=== PATIENT | female | born 1990 | race Caucasian/White ===

== ENCOUNTER 2017-06-09 21:56 | Inpatient (IN) | payer OTHER ==
[~2017-06-09] VITALS: Ht 162.6 cm; Wt 59.0 kg
--- NOTE | ~2017-06-09 | PN ---
Unit #: [id number] #: [id number] Patient: JOSE MENCHACA [id number] [facility] [address] [place] [address] [id number] I MR#: [id number] NAME: JOSE MENCHACA ROOM: [facility] Age: 26 Sex: F Admission Date: 06/10/2017 : 1990 Attending Physician: Flip Gonzalez M.D. Admitting Physician: Flip Gonzalez M.D. Primary Care Physician: Primary Care Physician Mandy MCGILL NOTES DATE OF SERVICE: 06/12/2017 DISCUSSION Ms. Jose Menchaca is a 26-year-old female, seen on 06/12/2017. The patient interviewed, chart reviewed, and obtained information from nursing staff. The patient continues to be isolative, flat affect, sad and dysphoric mood. Vital signs; temperature 98.5, heart rate 61, and blood pressure 90/56. The patient's mood was irritable, withdrawn, and isolative. REVIEW OF SYSTEMS Complete review of systems unremarkable. MENTAL STATUS EXAMINATION General appearance, the patient dressed casually. Attention span and concentration, fair. Oriented in time, place, and person. Mood and affect, labile. Speech, monotone. Thought process, concrete. The patient denied any thoughts of harming self or others, but passive SI. Recent and remote memory, poor. Insight and judgment, poor. DIAGNOSES Opioid use disorder, severe and major depressive disorder, recurrent. ASSESSMENT/PLAN Advised to continue with current medication and therapeutic protocol. If needed, consider further adjustment of medication. Dictated by... Carito Correa/brenda TD: 06/14/2017 19:40 JOB #: [id number] Unit #: [id number] #: [id number] Patient: JOSE MENCHACA PROGRESS NOTES Page 1 of 1 X Flip Gonzalez MD PROGRESS NOTE
--- NOTE | ~2017-06-09 | PA ---
Unit #: [id number] #: [id number] Patient: MICHELE MENCHACA [id number] [facility] [address] [place] [address] [id number] I MR#: [id number] NAME: MICHELE MENCHACA ROOM: [facility] Age: 26 Sex: F Admission Date: 06/10/2017 : 1990 Date of Assessment: 06/10/2017 Attending Physician: Flip Gonzalez M.D. Admitting Physician: Flip Gonzalez M.D. Primary Care Physician: Primary Care Physician No PSYCHIATRIC ASSESSMENT INFORMANT The patient reliability, fair; chart reliability, good. CHIEF COMPLAINT Opiate detox and depression. HISTORY OF PRESENT ILLNESS Ms. Garcia is a 26-year-old female, presented with the above-mentioned complaint. The patient reported that wanted opioid detox, reported making suicidal statement, feeling sad, depressed, anxious and reported rather kill herself, than return to drugs or homeless. The patient reported lack of social support, family support. No recovery support. The patient reports that she is using about a gram of heroin IV. Reported using meth, Xanax, wherever available. The patient unable to wander for safety, needing inpatient admission at this time for psychiatric stabilization. The patient reported tobacco use, half a pack daily; alcohol occasionally; marijuana; recent use of crack cocaine; recent use opiate 1 g daily; amphetamine as she can get amphetamine, Xanax. Longest period of sobriety 6 months. PAST PSYCHIATRIC HISTORY Remarkable for history of previous treatment rehab in 2014. FAMILY HISTORY AND SOCIAL HISTORY The patient is currently homeless with poor support system. No legal problems. MEDICAL HISTORY Remarkable for history of hepatitis C. Musculoskeletal; muscle strength and tone, no atrophy or abnormal movement. Gait normal. MEDICATION HISTORY None. ALLERGIES No known drug allergies. SUBSTANCE ABUSE HISTORY Please see above. REVIEW OF SYSTEMS HEENT: Eyes, clear. Ears, nose, mouth, and throat; clear. CARDIOVASCULAR: Unremarkable. Unit #: [id number] #: [id number] Patient: MICHELE MENCHACA RESPIRATORY: Unremarkable. GI: Unremarkable. : Unremarkable. SKIN: Unremarkable. LYMPH NODE: Unremarkable. NEUROLOGIC: Unremarkable. ENDOCRINE: Unremarkable. HEMATOLOGIC: Unremarkable. ALLERGIC/IMMUNOLOGIC: Unremarkable. MUSCULOSKELETAL: Muscle strength and tone, no atrophy or abnormal movement. Gait normal. MENTAL STATUS EXAMINATION CONSTITUTIONAL: Measurement of vital signs; temperature 98.6, pulse 68, respirations 18, and blood pressure 122/76, height 5 feet 4 inches, weight 130 pounds. GENERAL APPEARANCE: The patient dressed casually. The patient did not show any facial deformity. MUSCULOSKELETAL: Please see above. PSYCHIATRIC EXAMINATION Description of speech; regular rate, normal volume, normal articulation, coherent, and spontaneous, disorganize. Thought process, goal directed. Description of association, intact. Description of abnormal psychotic thinking; the patient denied any hallucination or delusions, but mood lability, suicidal ideation, substance abuse. Description of the patient's judgment, concerning everyday activity, poor. Social situation, poor. Concerning psychiatric condition, poor. Complete mental status examination; oriented in time, place, and person. Recent and remote memory, fair. Attention span and concentration, fair. Language, able to name object and repeat phrases. Fund of knowledge, aware of current event and passive vocabulary intact. Mood and affect, sad and dysphoric. Insight and judgment, fair to poor. ASSETS AND LIABILITIES Assets; the patient is articulate, able to take care of her ADL. Liability; history of substance abuse and depression. ADMITTING DIAGNOSES Psychiatric: Opioid use disorder, severe, F11.20; major depressive disorder, recurrent, severe, F33.2. Secondary diagnosis: Deferred. Medical diagnosis: Hepatitis C. Stressors: Psychosocial stressors. PSYCHIATRIC PLAN AND TREATMENT GOAL AND DISCHARGE PLAN 1. Advised to admit the patient on the inpatient unit. Provide safe, supportive, and structured environment. 2. Ordered labs; CBC, CMP, UA, UDS, test. 3. Detox protocol and detox monitoring. If needed, consider medication for depression. 4. The patient to attend group therapy, individual therapy, chemical dependency group. 5. Treatment goal; to attain euthymic mood, gain insight into her Unit #: [id number] #: [id number] Patient: MICHELE MENCHACA problem, and learn coping skills. 6. Discharge plan; plan to stabilize the patient and consider followup in outpatient program. ESTIMATED LENGTH OF STAY 5 days. Dictated by... Flip Gonzalez M.D. JADE/brenda TD: 06/11/2017 15:43 JOB #: [id number] PSYCHIATRIC ASSESSMENT Page 1 of 1 X Flip Gonzalez MD PSYCHIATRIC ASSESSMENT
--- NOTE | ~2017-06-09 | CO ---
Unit #: [id number] #: [id number] Patient: MICHELE MENCHACA [id number] [facility] [address] [place] [address] [id number] I MR#: [id number] NAME: MICHELE MENCHACA ROOM: [facility] Age: 26 Sex: F Admission Date: 06/10/2017 : 1990 Attending Physician: Flip Gonzalez M.D. Primary Care Physician: Primary Care Physician No Consultation Date: 06/13/2017 CONSULTATION REPORT ORDERING PROVIDER Flip Gonzalez M.D. REASON FOR CONSULTATION Vaginal odor. SUBJECTIVE The patient reports that she had a recent diagnosis of bacterial vaginosis and was prescribed Flagyl before being admitted to [facility]. She did not complete this course and reports that she only took about 4 days worth. She complains foul smelling discharge with itching, but no burning. She also has a history of vaginal herpes, which she is having a flare of now. OBJECTIVE Vaginal examination was deferred. Her vital signs are stable. DIAGNOSTIC STUDIES LABORATORY RESULTS: No urinalysis was done. ASSESSMENT 1. Bacterial vaginosis. 2. Herpes. PLAN Plan is to start the patient on a new treatment cycle of Flagyl and Valtrex. Dictated by... Chrissy Arias/brenda TD: 06/14/2017 16:41 JOB #: [id number] Unit #: [id number] #: [id number] Patient: MICHELE MENCHACA CONSULTATION REPORT Page 1 of 1 X ELICIA VENEGAS APRN X CONSULTATION REPORT
--- NOTE | ~2017-06-09 | DS ---
Unit #: [id number] #: [id number] Patient: MICHELE MENCHACA [id number] [facility] [address] [place] [address] [id number] MR#: [id number] NAME: MICHELE MENCHACA ROOM: [facility] Age: 26 Sex: F Admission Date: 06/10/2017 : 1990 Discharge Date: 06/14/2017 Attending Physician: Flip Gonzalez M.D. Primary Care Physician: Primary Care Physician No DISCHARGE SUMMARY REASON FOR ADMISSION Opiate detox. DIAGNOSTIC STUDIES LABORATORY DATA: Unremarkable. HOSPITAL COURSE The patient was admitted to inpatient unit on 06/10/17 and discharged on 06/14/17. Patient was treated with psychotherapy, psychoeducation, detox protocol, detox monitoring. Patient was responsive to treatment, showed improvement. Subsequently, patient was discharged with a plan to follow up in outpatient program. DISCHARGE DIAGNOSES PSYCHIATRIC: 1. Opiate use disorder, severe, F11.20. 2. Major depressive disorder, recurrent, severe, F33.2. SECONDARY DIAGNOSIS: Deferred. MEDICAL DIAGNOSIS: Hepatitis C. STRESSORS: Psychosocial stressor. FOLLOWUP CARE Patient to follow up in outpatient clinic as per social insurance adviser. DISCHARGE MEDICATIONS 1. Celexa 20 mg daily for depression. 2. Trazodone 100 mg at bedtime for sleep. CONDITION AT DISCHARGE Patient pleasant, cooperative. Denied any psychotic symptoms or any suicidal ideation. PROGNOSIS Guarded. DIET AND ACTIVITY As tolerated. Unit #: [id number] #: [id number] Patient: MICHELE MENCHACA Dictated by... Flip Gonzalez M.D. SZJose/jessica TD: 06/17/2017 17:22 JOB #: [id number] DISCHARGE SUMMARY Page 1 of 1 X Flip Gonzalez MD X DISCHARGE SUMMARY
--- NOTE | ~2017-06-09 | HP ---
Unit #: [id number] #: [id number] Patient: JOSE MENCHACA [id number] [facility] [address] [place] [address] [id number] I MR#: [id number] NAME: JOSE MENCHACA ROOM: [facility] Age: 26 Sex: F Admission Date: 06/10/2017 : 1990 Attending Physician: Flip Gonzalez M.D. Admitting Physician: Flip Gonzalez M.D. Primary Care Physician: Primary Care Physician No HISTORY AND PHYSICAL HISTORY OF PRESENT ILLNESS Jose is a 26-year-old female admitted to [facility] because of her IV drug use. She shoots heroin. PAST MEDICAL HISTORY 1. Long history of opioid abuse to include IV heroin. 2. Hepatitis C. PAST SURGICAL HISTORY Nothing reported. ALLERGIES Penicillin, Zofran. SOCIAL HISTORY Smokes 1/2 pack per day. Drinks alcohol socially and admits to a long history of illicit substance abuse to include IV heroin. FAMILY HISTORY Medically noncontributory. REVIEW OF SYSTEMS CONSTITUTIONAL: No fever or chills. HEENT: Denies any sore throat, ear pain or runny nose. CARDIOVASCULAR: Denies chest pain, irregular heart rhythm or palpitations. CHEST: Denies shortness of breath or cough. No hemoptysis. GASTROINTESTINAL: Denies nausea, vomiting, diarrhea or chronic constipation. ENDOCRINE: Denies history of increased thirst or urination. No recent significant weight loss or gain. GENITOURINARY: Denies dysuria, frequency, or hematuria. SKIN: Denies any rashes. HEMATOLOGIC: Denies history of increased bleeding or bruising. MUSCULOSKELETAL: Denies any hot, swollen joints. No generalized muscle pain. NEUROLOGIC: Denies problems with vision or speech. No frequent, severe headaches. No numbness, tingling or weakness in any extremities. Denies loss of bladder or bowel control. CURRENT MEDICATIONS Detox protocol. PHYSICAL EXAMINATION Unit #: [id number] #: [id number] Patient: JOSE MENCHACA GENERAL: Alert, well-nourished, in no apparent distress. VITAL SIGNS: Blood pressure 122/76, heart rate 68, respirations 16, temperature 98.6. WEIGHT: 130. HEIGHT: 5 feet 4 inches. SKIN: Warm and dry without rash or lesion. HEENT: Normocephalic. TMs not viewed. Oral and nasal passages clear. Conjunctivae clear. PERRLA. EOMs intact. NECK: Supple without lymphadenopathy or thyromegaly. HEART: Regular rate and rhythm without murmur. LUNGS: Clear. ABDOMEN: Soft, nontender. : Not done. EXTREMITIES: No evidence of cyanosis, clubbing or edema. Moves all without focal deficit. NEUROLOGICAL: Grossly within normal limits. Cranial Nerves: II: Visual shoemaker are intact. III, IV AND : Extraocular movements are intact. Pupils are equal, round and reactive to light. V: Facial sensation is grossly normal. VII: Facial movements and expression are normal. VIII: Auditory acuity grossly intact. IX, X: Uvula is midline. Phonation is normal. XI: Patient shrugs shoulders and turns head normally. XII: Tongue protrudes in the midline. Sensory and Motor Function: Sensory and motor sensation is grossly normal. Motor: moves all extremities well. Coordination: Gait is normal. Deep Tendon Reflexes: Intact. IMPRESSION Psychiatric admission. RECOMMENDATIONS PSYCHIATRIC: Per psychiatrist. MEDICAL: See no contraindication to participate in facility's activities. MEDICAL PROGNOSIS Good. MEDICAL CONDITION Stable. Dictated by... Sapna Tolbert P.A.-C. for Carito Rojas/jessica TD: 06/10/2017 19:56 JOB #: [id number] Unit #: [id number] #: [id number] Patient: JOSE MENCHACA HISTORY AND PHYSICAL Page 1 of 1 X Sapna Tolbert X HISTORY AND PHYSICAL
--- NOTE | ~2017-06-09 | PN ---
Unit #: [id number] #: [id number] Patient: JOSE MENCHACA [id number] [facility] [address] [place] [address] [id number] MR#: [id number] NAME: JOSE MENCHACA ROOM: [facility] Age: 26 Sex: F Admission Date: 06/10/2017 : 1990 Attending Physician: Flip Gonzalez M.D. Admitting Physician: Flip Gonzalez M.D. Primary Care Physician: Primary Care Physician Mandy BOBO PROGRESS NOTES DATE 06/13/2017 DISCUSSION Ms. Jose Menchaca is a 26-year-old female, seen on 06/13/2017. The patient reported that she is still having trouble sleeping and depression, but denied any thoughts of harming self or others. The patient was admitted for detox. The patient reports making progress and would like to go to recovery rehab program. REVIEW OF SYSTEMS Complete review of systems unremarkable. MENTAL STATUS EXAMINATION General appearance: Patient dressed casually, thin-built, dressed appropriate. Attention span and concentration, fair. Oriented in time, place, and person. Mood and affect, sad, dysphoric. Speech, regular rate. Thought process, goal-directed. The patient denied any thoughts of harming self or others. Recent and remote memory, poor. Insight and judgment, poor. DIAGNOSES 1. Opiate use disorder, severe. 2. Major depressive disorder. ASSESSMENT/PLAN Advised to continue with the current medication with the plan to increase trazodone to 100 mg at bedtime and add Celexa 20 mg daily, if needed consider further adjustment of medication. Dictated by... Carito Correa/arlet TD: 06/14/2017 12:59 JOB #: [id number] Unit #: [id number] #: [id number] Patient: JOSE MENCHACA PROGRESS NOTES Page 1 of 1 X Flip Gonzalez MD PROGRESS NOTE
--- NOTE | ~2017-06-09 | PN ---
Unit #: [id number] #: [id number] Patient: JOSE MENCHACA [id number] [facility] [address] [place] [address] [id number] MR#: [id number] NAME: JOSE MENCHACA ROOM: [facility] Age: 26 Sex: F Admission Date: 06/10/2017 : 1990 Attending Physician: Flip Gonzalez M.D. Admitting Physician: Flip Gonzalez M.D. Primary Care Physician: Primary Care Physician Mandy BOBO PROGRESS NOTES DATE OF SERVICE 06/11/2017 DISCUSSION Jose Menchaca is a 26-year-old female seen on 06/11/2017. Patient interviewed, chart reviewed. Obtained information from nursing staff. Patient tolerating medication fairly well. No side effects from medication. Cooperative. Mood was irritable, withdrawn, isolative, sad, dysphoric. Complete review of systems unremarkable. MENTAL STATUS EXAMINATION General appearance, patient dressed casually. Attention span and concentration fair. Oriented to place and person. Mood and affect labile. Speech monotone. Thought process concrete. Patient denied any thoughts of harming self or others. Recent and remote memory poor. Insight and judgement poor. DIAGNOSES 1. Opioid use disorder severe, F11.20. 2. Major depressive disorder recurrent severe F33.2. ASSESSMENT/PLAN Advise to continue with current medication and therapeutic protocol. If needed consider further adjustment of medication. Dictated by... Carito Correa/kishor TD: 06/14/2017 01:42 JOB #: [id number] Unit #: [id number] #: [id number] Patient: JOSE MENCHACA PROGRESS NOTES Page 1 of 1 X Flip Gonzalez MD PROGRESS NOTE
== END 2017-06-14 13:40 | DRG 897 ==
LOC: P1E 06-10 01:03
PROC: HZ2ZZZZ Detoxification Services for Substance Abuse Treatment (ICD-10-PCS; principal; 2017-06-10)
DX: F11.20 Opioid dependence, uncomplicated (principal); F33.2 Major depressive disorder, recurrent severe without psychotic features; N76.0 Acute vaginitis; B00.9 Herpesviral infection, unspecified; B19.20 Unspecified viral hepatitis C without hepatic coma
CPT/HCPCS: 84703; 86592